=== PATIENT | female | born 1945 | race Caucasian/White ===

== ENCOUNTER 2016-07-19 12:27 | Emergency (ER) | payer MEDICARE, OTHER ==
[~2016-07-19] VITALS: Ht 165.1 cm; Wt 53.1 kg
[~2016-07-19 12:27] MED LIST: INSU100C7 SQ; INSU100V28 IJ; INSULIN SQ
--- NOTE | 2016-07-19 12:38 | NUR ---
ASSUME PT CARE. C/O RT ANKLE PAIN AND REDNESS X 2 DAYS. CANT RECALL ANY RECENT TRAUMA. STATES WAS HIKING PRIOR TO PAIN. HX OF DIABETES. AWAITING MD MONTEIRO.
--- NOTE | 2016-07-19 12:58 | NUR ---
RADIOLOGY AT BEDSIDE FOR RT ANKLE XRAY.
[2016-07-19] MEDS ORDERED: IBUPROFEN 400 MG TABLET PO ONE (13:00)
--- NOTE | 2016-07-19 13:39 | NUR ---
U/S TECH AT BEDSIDE FOR DUPLEX ULTRASOUND.
--- NOTE | 2016-07-19 14:18 | NUR ---
KIANA BANDAGE APPLIED. PT D/C HOME W/ PRESCRIPTION IN STABLE CONDITION.
[2016-07-19 14:20] VITALS: BP 115/64
== END 2016-07-19 14:20 | disposition home or self-care (01) ==
LOC: ER 12:30
DX: M25.571 Pain in right ankle and joints of right foot (principal); M77.9 Enthesopathy, unspecified; E10.9 Type 1 diabetes mellitus without complications; Z79.4 Long term (current) use of insulin; Z88.1 Allergy status to other antibiotic agents
CPT/HCPCS: 73610-TC; 93971-TC; A4606; Z7610

== ENCOUNTER 2016-11-11 12:19 | Emergency (ER) | payer MEDICARE ==
[~2016-11-11] VITALS: Ht 165.1 cm; Wt 52.2 kg
[2016-11-11 12:22] VITALS: BP 95/51
== END 2016-11-11 12:41 | disposition home or self-care (01) ==
LOC: ER 12:20
DX: J02.9 Acute pharyngitis, unspecified (principal); E10.9 Type 1 diabetes mellitus without complications; Z88.1 Allergy status to other antibiotic agents; Z79.4 Long term (current) use of insulin; Z90.89 Acquired absence of other organs; Z98.890 Other specified postprocedural states
CPT/HCPCS: A4606; Z7610